=== PATIENT | female | born 1975 | race Two or more races ===

== ENCOUNTER 2017-07-17 22:03 | Emergency (ER) | payer SELFPAY ==
[~2017-07-17] VITALS: Ht 172.7 cm; Wt 68.0 kg
[2017-07-17] MEDS ORDERED: DIPHENHYDRAMINE 50MG/ML VIAL IM ONE (23:30)
[2017-07-18 02:30] VITALS: BP 121/74
== END 2017-07-18 06:14 | disposition home or self-care (01) ==
LOC: ER 22:03
DX: G24.01 Drug induced subacute dyskinesia (principal)
CPT/HCPCS: 96372; 99283; J1200